=== PATIENT | female | born 1965 | race Two or more races ===

== ENCOUNTER 2017-02-16 16:12 | Emergency (ER) | payer OTHER ==
[~2017-02-16] VITALS: Ht 157.5 cm; Wt 92.5 kg
[~2017-02-16 16:12] MED LIST: AVALIDE 300-12.1 TA1; BENTYL10 MG/ML IM; CIPRO500 MG PO; FLAGYL500MG PO; IMODIUM2 MG PO; PREVACID30 MG PO; PROTONIX20 MG PO; PROTONIX40 MG PO; SEPTRA DS TABLE1 TAB PO; TOPROL XL25 MG
[2017-02-16] MEDS ORDERED: SYNTHROID100 MCG (16:36)
== END 2017-02-16 22:32 | disposition home or self-care (01) ==
LOC: ER 16:12
DX: K52.9 Noninfective gastroenteritis and colitis, unspecified (principal)

== ENCOUNTER 2017-09-08 12:06 | Emergency (ER) | payer OTHER ==
[~2017-09-08] VITALS: Ht 157.5 cm; Wt 86.2 kg
[~2017-09-08 12:06] MED LIST changes: +SYNTHROID100 MCG
[2017-09-08] MEDS ORDERED: QUESTRAN PACKET4 GM (12:51)
== END 2017-09-08 18:50 ==
LOC: ER 12:06
DX: S30.811A Abrasion of abdominal wall, initial encounter (principal); L76.82 Other postprocedural complications of skin and subcutaneous tissue; Y83.8 Other surgical procedures as the cause of abnormal reaction of the patient, or of later complication, without mention of misadventure at the time of the procedure; Y92.89 Other specified places as the place of occurrence of the external cause; Y93.89 Activity, other specified; Y99.8 Other external cause status

== ENCOUNTER 2017-12-06 17:38 | Emergency (ER) | payer OTHER ==
[~2017-12-06] VITALS: Ht 157.5 cm; Wt 79.4 kg
[~2017-12-06 17:38] MED LIST changes: +QUESTRAN PACKET4 GM
[2017-12-06] MEDS ORDERED: ZANTAC300 MG (18:32)
[2017-12-06] MEDS ORDERED: ADVIL100 M1 (18:33)
== END 2017-12-06 20:30 | disposition home or self-care (01) ==
LOC: ER 17:38
DX: L02.211 Cutaneous abscess of abdominal wall (principal); B95.61 Methicillin susceptible Staphylococcus aureus infection as the cause of diseases classified elsewhere

== ENCOUNTER 2018-02-20 16:39 | Emergency (ER) | payer OTHER ==
[~2018-02-20] VITALS: Ht 157.5 cm; Wt 80.3 kg
[~2018-02-20 16:39] MED LIST changes: +ADVIL100 M1; +ZANTAC300 MG
== END 2018-02-20 23:53 | disposition home or self-care (01) ==
LOC: ER 16:39
DX: L02.31 Cutaneous abscess of buttock (principal)

== ENCOUNTER 2018-02-21 17:37 | Emergency (ER) | payer OTHER ==
[~2018-02-21] VITALS: Ht 157.5 cm; Wt 80.3 kg
[2018-02-22] MEDS ORDERED: INTESTINEX680 M1 PO (00:42)
[2018-02-22] MEDS ORDERED: CLINDAMYCIN HC300 MG PO (00:42)
[2018-02-22] MEDS ORDERED: KETO10TA2 PO (00:42)
== END 2018-02-22 01:33 | disposition home or self-care (01) ==
LOC: ER 17:37
DX: L02.31 Cutaneous abscess of buttock (principal)

== ENCOUNTER 2022-12-21 12:37 | Emergency (ER) | payer OTHER ==
[~2022-12-21] VITALS: Ht 157.5 cm; Wt 83.5 kg
[~2022-12-21 12:37] MED LIST changes: +CLINDAMYCIN HC300 MG PO; +INTESTINEX680 M1 PO; +KETO10TA2 PO
[2022-12-21] MEDS ORDERED: QUESTRAN PACKET4 GM PO (13:09)
[2022-12-21] MEDS ORDERED: TOPROL XL50 MG PO (13:09)
[2022-12-21] MEDS ORDERED: PROTONIX40 M1 PO (13:10)
[2022-12-21 17:14] LABS: HEMATOCRIT 35.8 % (36.0-45.00); HEMOGLOBIN 11.8 g/dL (12.0-15.00); MEAN CELL VOLUME 84.5 fL (80.00-100.00); MEAN CORPUSCULAR HEMOGLOBIN 27.9 pg (27.00-32.0); PLATELET COUNT 191 K/uL (150-450); RED BLOOD COUNT 4.24 M/uL (4.00-6.00); RED CELL DISTRIBUTION WIDTH 13.4 % (11.5-14.5)
[2022-12-21 17:29] LABS: CALCIUM 8.8 mg/dL (8.5-10.1); CREATININE SERUM 0.95 mg/dL (0.55-1.02); GFR 61.07; POTASSIUM 3.84 mEq/L (3.5-5.1)
== END 2022-12-21 19:39 | disposition home or self-care (01) ==
LOC: ER 12:38
DX: H81.10 Benign paroxysmal vertigo, unspecified ear (principal); Z88.0 Allergy status to penicillin; E11.9 Type 2 diabetes mellitus without complications
CPT/HCPCS: 36415; 93005; 96372; 99284; J2765